=== PATIENT | female | born 1975 | race Caucasian/White ===

== ENCOUNTER 2016-10-17 17:55 | Emergency (ER) | payer OTHER ==
--- NOTE | 2016-10-17 21:51 | ED CLINICAL REPORT ---
Clinical Report - Physicians/Mid Levels [facility] [address] [place] [address] 10/17/2016 17:57 Patient: NALDO ALANIZ Time Seen: 20:50; initial patient contact, initial documentation, patient care assumed. Arrived- By private vehicle. Historian- patient. HISTORY OF PRESENT ILLNESS Chief Complaint: DYSURIA. This started about 2 - 3 weeks ago and still present. The symptoms are described as severe. Modifying factors- worsened by urination. Not relieved by anything. The patient has had pelvic pain, lower back pain and flank pain. No abdominal pain, vaginal pain, abnormal bleeding or vaginal discharge. She has had pain with urination and urgency of urination. The patient has had urinary frequency. Sexually active- unprotected sex and heterosexual. No exposure to sexually transmitted disease. Similar symptoms previously: None. Recent medical care: The patient was seen recently in a clinic. ( went to clinic approx x1 wk ago, dx with uti, took x7d cipro, no better). REVIEW OF SYSTEMS The patient has had nausea. No vomiting, fever, difficulty breathing or chest pain. She has had diarrhea (yesterday - gone today). This has occurred several times. She has had chills. All systems otherwise negative, except as recorded above. PAST HISTORY See nurses notes. ( PROBLEMS: Endometriosis. UTI - Urinary Tract Infection. Cervical CA. Otitis Media. PTSD. Anxiety Reaction. --19:26 Parvez Mancera, R.N. ADDITIONAL SURGERIES: Adenoidectomy. . Hysterectomy. Laparoscopy. Oophorectomy. Partial hysterectomy. Salpingectomy. Tonsillectomy. --19:26 Parvez Mancera, R.N.). SOCIAL HISTORY Light tobacco smoker. Occasional alcohol use. History of occasional drug use. No recent travel. Is a local resident. FAMILY HISTORY Negative. ADDITIONAL NOTES The nursing notes have been reviewed with agreement regarding the chief complaint, HPI, ROS, PMH and patient medications and allergies. PHYSICAL EXAM Vital Signs: 10/17/2016 19:18 BP: 103/64. HR: 82. RR: 16. O2 saturation: 99%. Temp: 98.2 F. Pain level now: 10/10. Have been reviewed as normal and appear to be correct. Appearance: Alert. Oriented X3. No acute distress. HEENT: Normal external inspection. ENT: Pharynx normal. Neck: Neck supple. CVS: Heart sounds normal. Respiratory: No respiratory distress. Breath sounds normal. Chest nontender. Abdomen: Soft. Mild tenderness in the suprapubic area. No guarding, rebound tenderness or Sanchez's, obturator or psoas sign present. Bowel sounds normal. No organomegaly. No mass. Tenderness present. Back: Abnormal external inspection. Mild CVA tenderness on the left. Skin: Skin warm and dry. Normal skin color. No rash. Normal skin turgor. Extremities: Extremities nontender. No lower extremity edema. Neuro: Oriented X 3. Mood/affect normal. No motor deficit. No sensory deficit. LABS, X-RAYS, AND EKG Laboratory Tests: UA-Culture if indicated: (JAIRO: 10/17/2016 19:21) ( [facility] 10/17/2016 19:54) Final results Test Result Flag Units (Reference) URINE COLOR YELLOW URINE APPEARANCE CLEAR URINE GLUCOSE NEGATIVE (NEGATIVE) URINE BILIRUBIN NEGATIVE (NEGATIVE) URINE KETONE NEGATIVE (NEGATIVE) URINE SPECIFIC GRAVITY 1.020 (1.010-1.030) URINE PH 7.5 (5.0-8.0) URINE PROTEIN NEGATIVE (NEGATIVE) URINE UROBILINOGEN 0.2 EU/dL (0.2-1.0) URINE NITRITE NEGATIVE (NEGATIVE) URINE BLOOD NEGATIVE (NEGATIVE) URINE LEUK ESTERASE TRACE (NEGATIVE) URINE RBC NONE SEEN rbc/hpf (0-1) URINE WBC 3-5 wbc/hpf (0-1) URINE EPITHELIAL CELLS 3-5 EPI/hpf (0-5) URINE BACTERIA FEW (1+) (NONE SEEN) URINE COMMENT CULTURE INDICATED 1+ AMORPHOUSURINE CULTURES ARE SET-UP BASED ON THE FOLLOWING CRITERIA:POSITIVE NITRITEPOSITIVE LEUKOCYTE ESTERASEGREATER THAN 10 WHITE BLOOD CELLSMODERATE (2+) OR GREATER BACTERIA Serum Qualitative: (JAIRO: 10/17/2016 20:40) ( [facility] 10/17[place] 21:23) Final results Test Result Flag Units (Reference) , SERUM NEGATIVE CBC w Diff: (JAIRO: 10/17/2016 20:40) ( [facility] 10/17/2016 21:21) Final results Test Result Flag Units (Reference) WHITE BLOOD COUNT 4.7 K/uL (4.5-11.5) RED BLOOD COUNT 3.84 L M/uL (4.00-5.20) HEMOGLOBIN 11.4 L gm/dL (12.0-16.0) HEMATOCRIT 34.7 L % (36.0-46.0) MEAN CELL VOLUME 90 fL (80-100) MEAN CORPUSCULAR HGB 30 pg (26-34) MEAN CORPUSCULAR HGB CONC 33 g/dL (31-37) RED CELL DISTRIBUTION WIDTH 12.1 % (11.6-14.8) PLATELET COUNT 194 K/uL (150-400) NEUTROPHIL % 53.2 % (50-75) LYMPH % 37.7 % (25-40) MONO % 6.1 % (3-14) EOSINOPHIL % 2.3 % (0-4) BASOPHIL % 0.7 % (0-2) CMP: (JAIRO: 10/17/2016 20:40) ( [facility] 10/17/2016 21:35) Final results Test Result Flag Units (Reference) GLUCOSE 70 mg/dL (70-110) BUN 10 mg/dL (7-18) CREATININE 0.8 mg/dL (0.6-1.3) Estimated GFR >60 mL/min Estimated GFR- >60 mL/min Note: Persistent reduction over 3 months in eGFR<60 mL/min/1.73 m2 defines CKD. Patients with eGFR values>=60 mL/min/1.73 m2 may also have CKD if evidence ofpersistent proteinuria. Additional information may be foundat www.kidney.org. SODIUM 139 mmol/L (136-145) POTASSIUM 3.9 mmol/L (3.5-5.1) CHLORIDE 108 H mmol/L (98-107) CARBON DIOXIDE 30 mmol/L (21-32) CALCIUM 8.1 L mg/dL (8.5-10.1) TOTAL PROTEIN 6.2 L g/dL (6.4-8.2) ALBUMIN 3.6 g/dL (3.3-5.0) BILIRUBIN, TOTAL 0.2 mg/dL (0.0-1.0) ALKALINE PHOSPHATASE 46 U/L (46-116) AST (SGOT) 17 U/L (15-37) ALT (SGPT) 34 U/L (12-78) LIPASE 178 U/L (73-393) AMYLASE 57 U/L (25-115) . PROGRESS AND PROCEDURES Patient counseled in person regarding the patient's stable condition, test results and diagnosis. 21:47. Differential Diagnosis: Other possible considerations: uti, pyelo, urosepsis. Above considerations are based on history, physical exam and laboratory data. Differential diagnosis was discussed with patient. Disposition: Discharged home in good and improved condition (21:50). Condition: good and stable. CLINICAL IMPRESSION Acute urinary tract infection with cystitis. No pyelonephritis or hematuria. Not associated with indwelling catheter or obstruction. INSTRUCTIONS Do not work for two days. Drink plenty of fluids for the next 24 hours until better. No sexual contact. Warnings: GENERAL WARNINGS: Return or contact your physician immediately if your condition worsens or changes unexpectedly, if not improving as expected, or if other problems arise. Specifically return if problem worsens. Prescription Medications: Zofran 4 mg: Take 1 orally every six hours as needed for nausea/vomiting. Dispense ten (10). No refills. Substitution is permissible. Pyridium 200 mg: take 1 orally every 8 hours as needed for urinary problems. Dispense six (6). No refills. Substitution is permissible. Septra DS 800 mg / 160 mg: take 1 tablet orally every 12 hours for 7 days. Dispense fourteen (14). No refills. Substitution is permissible. Toradol 10 mg tablets: Take 1 tablet orally every 6 hours as needed. Dispense fifteen (15). No refills. Substitution is permissible. Follow-up: Follow up with your doctor in about three days even if well. Call for an appointment. Summary of care provided to patient. Understanding of the discharge instructions verbalized by patient. (Electronically signed by Deepika Boateng A.R.N.P. 10/17/2016 22:52)
--- NOTE | 2016-10-17 21:51 | ED NURSING NOTES ---
Clinical Report - Nurses [facility] [address] [place] [address] 10/17/2016 17:57 Patient: NALDO ALANIZ TRIAGE Triage time 19:19. Acuity: LEVEL 4. Chief Complaint: PAINFUL URINATION, URGENCY and FREQUENCY. 19:29. Alert. SEPSIS SCREEN: Sepsis Screen. Negative (no infection suspected/documented). --19:29 Parvez Mancera R.N. 19:18 10/17/16. BP: 103/64. HR: 82. RR: 16. O2 saturation: 99% on room air. Temp: 98.2 F (oral). Pain level now: 07/21. --19:29 Parvez Mancera R.N. Weight: 65.7 kg stated. Height/Length: 66.5 inches Per Patient. BMI: 23. --19:27 Parvez Mancera R.N. Medications ClonazePAM Oral (Tablet 1 mg) 1 tablet, at bedtime. TraZODone HCl Oral (Tablet 150 mg) 1 tablet, at bedtime. Xanax Oral 0.5 mg, as needed. --19:25 Parvez Mancera R.N. Mirtazapine Oral 15 mg, daily. --19:25 Parvez Mancera R.N. Medication/allergy information source: the patient. --19:29 Parvez Mancera R.N. Allergies Penicillins. Possible Moderate (Mom and dad are allergic) --19:25 Parvez Mancera R.N. History Arrived by private vehicle. Historian: patient. Accompanied by family. Primary physician (Ronald). Onset. (Few weeks). 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 (Finished course Cipro,). PAST MEDICAL HX: Immunizations: up-to-date. Last normal menstrual period- years ago. The patient has had a hysterectomy. SOCIAL HX: Current every day light tobacco smoker- less than 1/2 a pack per day. Occasional alcohol use. History of occasional drug use: marijuana. No infectious disease exposure. ABUSE ASSESSMENT: No report of abuse. FALL RISK ASSESSMENT: Fall risk assessment completed. No fall risk identified. NUTRITIONAL RISK ASSESSMENT: The nutritional risk assessment revealed no deficiencies. FUNCTIONAL ASSESSMENT: Functional assessment: no impairments noted. LEARNING NEEDS ASSESSMENT: The learning needs assessment revealed no barriers. SKIN INTEGRITY ASSESSMENT: Skin integrity risk assessment completed. No skin integrity risk identified. --19: Parvez Mancera R.N. PROBLEMS: Endometriosis. UTI - Urinary Tract Infection. Cervical CA. Otitis Media. PTSD. Anxiety Reaction. --19: Parvez Mancera R.N. ADDITIONAL SURGERIES: Adenoidectomy. . Hysterectomy. Laparoscopy. Oophorectomy. Partial hysterectomy. Salpingectomy. Tonsillectomy. --19: Parvez Mancera R.N. Interventions ID band on patient. --: aPrvez Mancera R.N. PHYSICAL ASSESSMENT Ambulatory to room. GENERAL / NEURO / PSYCH: Alert. Oriented X 4. Appears in pain. HEENT: Mucous membranes are pink. RESPIRATORY: Respirations not labored. Breath sounds within normal limits. CVS: Normal heart rate and rhythm. Capillary refill less than 2 seconds. GI / : Abdomen soft and nontender. Bowel sounds within normal limits. SKIN: Skin is warm and dry. BACK: ( Left flank pain). --20:32 Humera Pierre R.N. NURSING PROGRESS NOTES 19:18. Patient ID band checked for patient name and birthdate: patient confirmed. Clean catch urine collected with return of yellow-colored cloudy urine; sample sent to lab for urinalysis. Specimen labeled in the presence of the patient. --19:29 Parvez Mancera R.N. 20:32 10/17/16. BP: 107/66. HR: 74. RR: 17. O2 saturation: 100%. Pain level now: 07/21. --20:35 Humera Pierre R.N. Monitoring of patient in place. Patient gowned. Head of bed elevated. Reassurance given. Two patient identifiers checked. Call light placed in reach. Side rails up x 1. Bed placed in lowest position. Brakes of bed on. --20:35 Humear Pierre R.N. 20:38 10/17/2016 Site #1 started via IV in the right antecubital space with an 20g angiocath, with aseptic technique and good blood return; one attempt. Blood drawn: rainbow set. Labeled in the presence of the patient and sent to the lab. Saline lock flushed with 10 mL saline. --20:43 Humera Pierre R.N. 21:30 10/17/2016 Toradol IVP 30 mg given over 2 minute(s) via site #1. Allergies verified and confirmed 5 rights. IV patency established. IV site checked: no pain, redness, or swelling. IV flushed thoroughly pre- and post-medication administration. IVP given by RN. --21:40 Humera Pierre R.N. <<STRICKEN ENTRY-- 21:31 10/17/2016 Started 1 gm of Ceftriaxone IVPB in bag #1 50 mL; at 110 mL/hr over 20 minute(s) via site #1 via IV pump. Allergies verified and confirmed 5 rights. IV patency established. IV site checked: no pain, redness, or swelling. IV flushed thoroughly pre- and post-medication administration. --21:41 Humera Pierre R.N. --END STRIKE>> Change to Details. --21:47 Humera Pierre R.N. 21:31 10/17/2016 Started 1 gm of Ceftriaxone IVPB in bag #1 50 mL; at 150 mL/hr over 20 minute(s) via site #1 via IV pump. Allergies verified and confirmed 5 rights. IV patency established. IV site checked: no pain, redness, or swelling. IV flushed thoroughly pre- and post-medication administration. --21:47 Humera Pierre R.N. 21:40 10/17/2016 Zofran (Ondansetron HCl) IVP 4 mg given over 2 minute(s) via site #1. Allergies verified and confirmed 5 rights. IV patency established. IV site checked: no pain, redness, or swelling. IV flushed thoroughly pre- and post-medication administration. IVP given by RN. --21:40 Humera Pierre R.N. 22:25 10/17/2016 Site #1 removed upon discharge. Catheter intact. Bandaid applied. --22:37 Lashonda Smiley R.N. DISPOSITION / DISCHARGE 22:30 10/17/16. Condition at departure: improved and stable. The goals identified in the patient's plan of care were met. No learning barriers present. Discharge instructions provided and reviewed with the patient. Reviewed medication(s) side effects, precautions, dosing and course information. Prescription(s) given to the patient. Reviewed referral to a primary care physician for followup. Patient verbalized understanding. Written instructions provided in Georgian. The patient was discharged home and accompanied by spouse. She left the Emergency Department ambulatory and via private vehicle. Spouse driving. FALL RISK ASSESSMENT: Fall risk assessment completed. No fall risk identified. --22:38 Lashonda Smiley R.N. 22:30 10/17/16. BP: 102/68. HR: 88. RR: 16. O2 saturation: 100%. Temp: 99.0 F. Pain level now 3/10. --22:38 Lashonda Smiley R.N. Departure time: 22:35 Oct 17 2016. --22:38 Lashonda Smiley R.N. Locked/Released at 10/17/2016 22:38 by Lashonda Smiley R.N.
--- NOTE | 2016-10-17 21:51 | ED ORDER SUMMARY ---
..... Patient: NALDO ALANIZ OrderSheet [facility] VisitID: [id number] [place] [address] 41y, F Registration Date/Time: 10/17/2016 ORDER SHEET Weight: 65.7 kg (stated) Allergies: Penicillins GENERAL ORDERS: UA-Culture if indicated Urgent (19:32 10/17/2016 JQuivey R.N. per protocol) (20:20 ABarnum R.N.) CBC w Diff Urgent (21:10 10/17/2016 HBivens A.R.N.P.) (Ack 21:12 LTapper) (21:23 ABarnum R.N.) CMP Urgent (21:10 10/17/2016 HBivens A.R.N.P.) (Ack 21:12 LTapper) (21:23 ABarnum R.N.) Amylase Urgent (21:10 10/17/2016 HBivens A.R.N.P.) (Ack 21:12 LTapper) (21:23 ABarnum R.N.) Lipase Urgent (21:10 10/17/2016 HBivens A.R.N.P.) (Ack 21:12 LTapper) (21:23 ABarnum R.N.) Serum Qualitative Urgent (21:11 10/17/2016 HBivens A.R.N.P.) (Ack 21:12 LTapper) (21:23 ABarnum R.N.) MEDICATION ORDERS: IV FLUIDS: Ceftriaxone IV 1 gm/50mL (NOW) (21:10 10/17/2016 HBivens A.R.N.P.) (Ack 21:23 ABarnum R.N.) (21:41 ABarnum R.N.) Toradol IV 30 mg (NOW) (21:11 10/17/2016 HBivens A.R.N.P.) (Ack 21:23 ABarnum R.N.) (21:40 ABarnum R.N.) Zofran IV 4 mg (NOW) (21:39 10/17/2016 ABarnum R.N. verbal order read back to Christ Nieto) (Ack 21:40 ABarnum R.N.) (21:40 ABarnum R.NNicholas) ORDER SHEET NOTES: [Electronically signed by Lashonda Smiley R.N. (22:38 10/17/2016)] [Electronically signed by Deepika BoatengNNicholasPNicholas (22:52 10/17/2016)] [Electronically locked/signed by Lashonda Smiley R.N. (22:38 10/17/2016)]
--- NOTE | 2016-10-17 21:51 | ED ORDER SUMMARY ---
..... Patient: NALDO ALANIZ OrderSheet [facility] VisitID: [id number] [place] [address] 41y, F Registration Date/Time: 10/17/2016 ORDER SHEET Weight: 65.7 kg (stated) Allergies: Penicillins GENERAL ORDERS: UA-Culture if indicated Urgent (19:32 10/17/2016 JQuivey R.N. per protocol) (20:20 ABarnum R.N.) CBC w Diff Urgent (21:10 10/17/2016 HBivens A.R.N.P.) (Ack 21:12 LTapper) (21:23 ABarnum R.N.) CMP Urgent (21:10 10/17/2016 HBivens A.R.N.P.) (Ack 21:12 LTapper) (21:23 ABarnum R.N.) Amylase Urgent (21:10 10/17/2016 HBivens A.R.N.P.) (Ack 21:12 LTapper) (21:23 ABarnum R.N.) Lipase Urgent (21:10 10/17/2016 HBivens A.R.N.P.) (Ack 21:12 LTapper) (21:23 ABarnum R.N.) Serum Qualitative Urgent (21:11 10/17/2016 HBivens A.R.N.P.) (Ack 21:12 LTapper) (21:23 ABarnum R.N.) MEDICATION ORDERS: IV FLUIDS: Ceftriaxone IV 1 gm/50mL (NOW) (21:10 10/17/2016 HBivens A.R.N.P.) (Ack 21:23 ABarnum R.N.) (21:41 ABarnum R.N.) Toradol IV 30 mg (NOW) (21:11 10/17/2016 HBivens A.R.N.P.) (Ack 21:23 ABarnum R.N.) (21:40 ABarnum R.N.) Zofran IV 4 mg (NOW) (21:39 10/17/2016 ABarnum R.N. verbal order read back to Christ Nieto) (Ack 21:40 ABarnum R.N.) (21:40 ABarnum R.NNicholas) ORDER SHEET NOTES: [Electronically signed by Lashonda Smiley R.N. (22:38 10/17/2016)] [Electronically signed by Deepika BoatengNNicholasPNicholas (22:52 10/17/2016)] [Electronically locked/signed by Lashonda Smiley R.N. (22:38 10/17/2016)]
--- NOTE | 2016-10-17 22:52 | ED DISCHARGE INSTRUCTIONS ---
Patient: NALDO ALANIZ General Instructions [facility] VisitID: [id number] [place] [address] 41y, F Registration Date/Time: 10/17/2016 Acute urinary tract infection with cystitis. No pyelonephritis or hematuria. Not associated with indwelling catheter or obstruction. INSTRUCTIONS Do not work for two days. Drink plenty of fluids for the next 24 hours until better. No sexual contact. Warnings: GENERAL WARNINGS: Return or contact your physician immediately if your condition worsens or changes unexpectedly, if not improving as expected, or if other problems arise. Specifically return if problem worsens. Prescription Medications: Zofran 4 mg: Take 1 orally every six hours as needed for nausea/vomiting. Dispense ten (10). No refills. Substitution is permissible. Pyridium 200 mg: take 1 orally every 8 hours as needed for urinary problems. Dispense six (6). No refills. Substitution is permissible. Septra DS 800 mg / 160 mg: take 1 tablet orally every 12 hours for 7 days. Dispense fourteen (14). No refills. Substitution is permissible. Toradol 10 mg tablets: Take 1 tablet orally every 6 hours as needed. Dispense fifteen (15). No refills. Substitution is permissible. Follow-up: Follow up with your doctor in about three days even if well. Call for an appointment. Summary of care provided to patient. Understanding of the discharge instructions verbalized by patient. ADDITIONAL INFORMATION Bladder Infection,Female (Adult) A bladder infection ("cystitis" or "UTI") usually causes a constant urge to urinate and a burning when passing urine. Urine may be cloudy, smelly or dark. There may be pain in the lower abdomen. A bladder infection occurs when bacteria from the vaginal area enter the bladder opening (urethra). This can occur from sexual intercourse, wearing tight clothing, dehydration and other factors. Home Care: Drink lots of fluids (at least 6-8 glasses a day, unless you must restrict fluids for other medical reasons). This will force the medicine into your urinary system and flush the bacteria out of your body. Avoid sexual intercourse until your symptoms are gone. Avoid caffeine, alcohol and spicy foods. These can irritate the bladder. A bladder infection is treated with antibiotics. You may also be given Pyridium (generic = phenazopyridine) to reduce the burning sensation. This medicine will cause your urine to become a bright orange color. The orange urine may stain clothing. You may wear a pad or panty-liner to protect clothing. Preventing Future Infections: Always wipe from front to back after a bowel movement. Keep the genital area clean and dry. Drink plenty of fluids each day to avoid dehydration. Both sexual partners should wash before intercourse. Urinate right after intercourse to flush out the bladder. Wear cotton underwear and cotton-lined panty hose; avoid tight-fitting pants. If you are on control pills and are having frequent bladder infections, discuss with your doctor. Follow Up: Return to this facility or see your doctor if ALL symptoms are not gone after three days of treatment. Get Prompt Medical Attention if any of the following occur: Fever of 100.4F (38C) or higher, or as directed by your healthcare provider No improvement by the third day of treatment Increasing back or abdominal pain Repeated vomiting; unable to keep medicine down Weakness, dizziness or fainting Vaginal discharge Pain, redness or swelling in the labia (outer vaginal area) Ondansetron Oral disintegrating tablet What is this medicine? ONDANSETRON (on LINA se yahaira) is used to treat nausea and vomiting caused by chemotherapy. It is also used to prevent or treat nausea and vomiting after surgery. How should I use this medicine? These tablets are made to dissolve in the mouth. Do not try to push the tablet through the foil backing. With dry hands, peel away the foil backing and gently remove the tablet. Place the tablet in the mouth and allow it to dissolve, then swallow. While you may take these tablets with water, it is not necessary to do so. Talk to your technology integration specialist regarding the use of this medicine in children. Special care may be needed. What side effects may I notice from receiving this medicine? Side effects that you should report to your doctor or health landcare facilitator as soon as possible: allergic reactions like skin rash, itching or hives, swelling of the face, lips, or tongue breathing problems dizziness fast or irregular heartbeat feeling faint or lightheaded, falls fever and chills swelling of the hands and feet tightness in the chest Side effects that usually do not require medical attention (report to your doctor or health landcare facilitator if they continue or are bothersome): constipation or diarrhea headache What may interact with this medicine? Do not take this medicine with any of the following medications: -apomorphine -cisapride -dofetilide -dronedarone -pimozide -thioridazine -ziprasidone This medicine may also interact with the following medications: -carbamazepine -phenytoin -rifampicin -tramadol -other medicines that prolong the QT interval (cause an abnormal heart rhythm) What if I miss a dose? If you miss a dose, take it as soon as you can. If it is almost time for your next dose, take only that dose. Do not take double or extra doses. Where should I keep my medicine? Keep out of the reach of children. Store between 2 and 30 degrees C (36 and 86 degrees F). Throw away any unused medicine after the expiration date. What should I tell my health care provider before I take this medicine? They need to know if you have any of these conditions: heart disease history of irregular heartbeat liver disease low levels of magnesium or potassium in the blood an unusual or allergic reaction to ondansetron, granisetron, other medicines, foods, dyes, or preservatives or trying to get breast-feeding What should I watch for while using this medicine? Check with your doctor or health landcare facilitator as soon as you can if you have any sign of an allergic reaction. Phenazopyridine Hydrochloride Oral tablet What is this medicine? PHENAZOPYRIDINE (fen az oh PEER i patricio) is a pain reliever. It is used to stop the pain, burning, or discomfort caused by infection or irritation of the urinary tract. This medicine is not an antibiotic. It will not cure a urinary tract infection. How should I use this medicine? Take this medicine by mouth with a glass of water. Follow the directions on the prescription label. Take after meals. Take your doses at regular intervals. Do not take your medicine more often than directed. Do not skip doses or stop your medicine early even if you feel better. Do not stop taking except on your doctor's advice. Talk to your technology integration specialist regarding the use of this medicine in children. Special care may be needed. What side effects may I notice from receiving this medicine? Side effects that you should report to your doctor or health landcare facilitator as soon as possible: allergic reactions like skin rash, itching or hives, swelling of the face, lips, or tongue blue or purple color of the skin difficulty breathing fever less urine unusual bleeding, bruising unusual tired, weak vomiting yellowing of the eyes or skin Side effects that usually do not require medical attention (report to your doctor or health landcare facilitator if they continue or are bothersome): dark urine headache stomach upset What may interact with this medicine? Interactions are not expected. What if I miss a dose? If you miss a dose, take it as soon as you can. If it is almost time for your next dose, take only that dose. Do not take double or extra doses. Where should I keep my medicine? Keep out of the reach of children. Store at room temperature between 15 and 30 degrees C (59 and 86 degrees F). Protect from light and moisture. Throw away any unused medicine after the expiration date. What should I tell my health care provider before I take this medicine? They need to know if you have any of these conditions: kpcvubz-[id number]-kfvhpjiid dehydrogenase (G6PD) deficiency kidney disease an unusual or allergic reaction to phenazopyridine, other medicines, foods, dyes, or preservatives or trying to get breast-feeding What should I watch for while using this medicine? Tell your doctor or health landcare facilitator if your symptoms do not improve or if they get worse. This medicine colors body fluids red. This effect is harmless and will go away after you are done taking the medicine. It will change urine to an dark orange or red color. The red color may stain clothing. Soft contact lenses may become permanently stained. It is best not to wear soft contact lenses while taking this medicine. If you are diabetic you may get a false positive result for sugar in your urine. Talk to your health care provider. Sulfamethoxazole, Trimethoprim Oral tablet What is this medicine? SULFAMETHOXAZOLE; TRIMETHOPRIM or SMX-TMP (suhl fuh meth OK angelina zohl; trye METH oh prim) is a combination of a sulfonamide antibiotic and a second antibiotic, trimethoprim. It is used to treat or prevent certain kinds of bacterial infections. It will not work for colds, flu, or other viral infections. How should I use this medicine? Take this medicine by mouth with a full glass of water. Follow the directions on the prescription label. Take your medicine at regular intervals. Do not take it more often than directed. Do not skip doses or stop your medicine early. Talk to your technology integration specialist regarding the use of this medicine in children. Special care may be needed. This medicine has been used in children as young as 2 months of age. What side effects may I notice from receiving this medicine? Side effects that you should report to your doctor or health landcare facilitator as soon as possible: allergic reactions like skin rash or hives, swelling of the face, lips, or tongue breathing problems fever or chills, sore throat irregular heartbeat, chest pain joint or muscle pain pain or difficulty passing urine red pinpoint spots on skin redness, blistering, peeling or loosening of the skin, including inside the mouth unusual bleeding or bruising unusually weak or tired yellowing of the eyes or skin Side effects that usually do not require medical attention (report to your doctor or health landcare facilitator if they continue or are bothersome): diarrhea dizziness headache loss of appetite nausea, vomiting nervousness What may interact with this medicine? Do not take this medicine with any of the following medications: aminobenzoate potassium dofetilide metronidazole This medicine may also interact with the following medications: GODWIN inhibitors like benazepril, enalapril, lisinopril, and ramipril cyclosporine digoxin diuretics indomethacin medicines for diabetes methenamine methotrexate phenytoin potassium supplements pyrimethamine sulfinpyrazone tricyclic antidepressants warfarin What if I miss a dose? If you miss a dose, take it as soon as you can. If it is almost time for your next dose, take only that dose. Do not take double or extra doses. Where should I keep my medicine? Keep out of the reach of children. Store at room temperature between 20 to 25 degrees C (68 to 77 degrees F). Protect from light. Throw away any unused medicine after the expiration date. What should I tell my health care provider before I take this medicine? They need to know if you have any of these conditions: anemia asthma being treated with anticonvulsants if you frequently drink alcohol containing drinks kidney disease liver disease low level of folic acid or [id number] dehydrogenase poor nutrition or malabsorption porphyria severe allergies thyroid disorder an unusual or allergic reaction to sulfamethoxazole, trimethoprim, sulfa drugs, other medicines, foods, dyes, or preservatives or trying to get breast-feeding What should I watch for while using this medicine? Tell your doctor or health landcare facilitator if your symptoms do not improve. Drink several glasses of water a day to reduce the risk of kidney problems. Do not treat diarrhea with over the counter products. Contact your doctor if you have diarrhea that lasts more than 2 days or if it is severe and watery. This medicine can make you more sensitive to the sun. Keep out of the sun. If you cannot avoid being in the sun, wear protective clothing and use a sunscreen. Do not use sun lamps or tanning beds/booths. Ketorolac Tromethamine Oral tablet What is this medicine? KETOROLAC (donte toe ROLE ak) is a non-steroidal anti-inflammatory drug (NSAID). It is used for a short while to treat moderate to severe pain, including pain after surgery. It should not be used for more than 5 days. How should I use this medicine? Take this medicine by mouth with a full glass of water. Follow the directions on the prescription label. Take your medicine at regular intervals. Do not take your medicine more often than directed. Do not take more than the recommended dose. A special MedGuide will be given to you by the pharmacist with each prescription and refill. Be sure to read this information carefully each time. Talk to your technology integration specialist regarding the use of this medicine in children. While this drug may be prescribed for children as young as 16 years of age for selected conditions, precautions do apply. Patients over 65 years old may have a stronger reaction and need a smaller dose. What side effects may I notice from receiving this medicine? Side effects that you should report to your doctor or health landcare facilitator as soon as possible: allergic reactions like skin rash, itching or hives, swelling of the face, lips, or tongue black or tarry stools breathing problems changes in vision chest pain high blood pressure nausea or vomiting redness, blistering, peeling or loosening of the skin, including inside the mouth severe abdominal pain slurred speech or weakness on one side of the body unexplained weight gain or swelling unusual bleeding or bruising unusually weak or tired yellowing of eyes or skin Side effects that usually do not require medical attention (report to your doctor or health landcare facilitator if they continue or are bothersome): diarrhea dizziness headache heartburn What may interact with this medicine? Do not take this medicine with any of the following medications: aspirin and aspirin-like medicines cidofovir methotrexate NSAIDs, medicines for pain and inflammation, like ibuprofen or naproxen pemetrexed probenecid This medicine may also interact with the following medications: alcohol alendronate alprazolam carbamazepine cyclosporine diuretics flavocoxid fluoxetine ginkgo lithium medicines for high blood pressure like enalapril medicines that affect platelets like pentoxifylline medicines that treat or prevent blood clots like heparin, warfarin muscle relaxants phenytoin steroid medicines like prednisone or cortisone thiothixene What if I miss a dose? If you miss a dose, take it as soon as you can. If it is almost time for your next dose, take only that dose. Do not take double or extra doses. Where should I keep my medicine? Keep out of the reach of children. Store at room temperature between 20 and 25 degrees C (68 and 77 degrees F). Throw away any unused medicine after the expiration date. What should I tell my health care provider before I take this medicine? They need to know if you have any of these conditions: asthma bleeding problems like hemophilia cigarette smoker drink more than 3 alcohol containing drinks a day heart disease or circulation problems such as heart failure or leg edema (fluid retention) high blood pressure kidney disease liver disease stomach bleeding or ulcers an unusual or allergic reaction to ketorolac, aspirin, other NSAIDs, other medicines, foods, dyes, or preservatives or trying to get breast-feeding What should I watch for while using this medicine? Tell your doctor or health landcare facilitator if your pain does not get better. Talk to your doctor before taking another medicine for pain. Do not treat yourself. This medicine does not prevent heart attack or stroke. In fact, this medicine may increase the chance of a heart attack or stroke. The chance may increase with longer use of this medicine and in people who have heart disease. If you take aspirin to prevent heart attack or stroke, talk with your doctor or health landcare facilitator. Do not take medicines such as ibuprofen and naproxen with this medicine. Side effects such as stomach upset, nausea, or ulcers may be more likely to occur. Many medicines available without a prescription should not be taken with this medicine. This medicine can cause ulcers and bleeding in the stomach and intestines at any time during treatment. Do not smoke cigarettes or drink alcohol. These increase irritation to your stomach and can make it more susceptible to damage from this medicine. Ulcers and bleeding can happen without warning symptoms and can cause . You may get drowsy or dizzy. Do not drive, use machinery, or do anything that needs mental alertness until you know how this medicine affects you. Do not stand or sit up quickly, especially if you are an older patient. This reduces the risk of dizzy or fainting spells. This medicine can cause you to bleed more easily. Try to avoid damage to your teeth and gums when you brush or floss your teeth. You have been given the following additional information: Bladder Infection, Female (Adult) Ondansetron Oral disintegrating tablet Phenazopyridine Hydrochloride Oral tablet Sulfamethoxazole, Trimethoprim Oral tablet Ketorolac Tromethamine Oral tablet Do not work for two days. (Electronically signed by Deepika Boateng A.R.N.P. 10/17/2016 22:52)
--- NOTE | 2016-10-17 22:53 | ED MED RECONCILIATION SUMMARY ---
Patient: NALDO ALANIZ Medication Reconciliation Report [facility] VisitID: [id number] [place] [address] 41y, F Registration Date/Time: 10/17/2016 Weight: 65.7 kg Height/Length: (not available) BMI: 23.0 ALLERGIES: Penicillins The patient's Home Medications are listed below: THE FOLLOWING MEDICATIONS NEED TO BE RECONCILED: ClonazePAM Oral (1 mg) 1 tablet, at bedtime Mirtazapine Oral 15 mg, daily TraZODone HCl Oral (150 mg) 1 tablet, at bedtime Xanax Oral 0.5 mg The source(s) of the original Home Medication information: patient The following Medications were given to the patient in the Emergency Department: Zofran [IVP] IVP 4 mg, administered: 10/17/2016 9:40:00 PM Toradol [IVP] IVP 30 mg, administered: 10/17/2016 9:30:00 PM Ceftriaxone [IVPB] IVPB bolus 0, then 1 gm 150 mL/hr, administered: 10/17/2016 9:31:00 PM The following Medications were prescribed to the patient: Zofran 4 mg: Take 1 orally every six hours as needed for nausea/vomiting. Dispense ten (10). No refills. Substitution is permissible. -- Deepika Boateng A.R.N.P. Pyridium 200 mg: take 1 orally every 8 hours as needed for urinary problems. Dispense six (6). No refills. Substitution is permissible. -- Deepika Boateng A.R.N.P. Septra DS 800 mg / 160 mg: take 1 tablet orally every 12 hours for 7 days. Dispense fourteen (14). No refills. Substitution is permissible. -- Deepika Boateng A.R.N.P. Toradol 10 mg tablets: Take 1 tablet orally every 6 hours as needed. Dispense fifteen (15). No refills. Substitution is permissible. -- Deepika Boateng A.R.N.P.
--- NOTE | 2016-10-17 22:53 | ED MAR SUMMARY ---
..... Medication Administration Record [facility] [address] [place] [address] Patient: NALDO ALANIZ Visit ID: [id number] 41y, F Weight: 65.7 kg Height/Length: 66.5 in BMI: 23 ALLERGIES: Penicillins Given 21:30 10/17/2016 Humera Pierre R.N. Medication Administered: TORADOL [IVP], Dose: 30 mg IVP over 2 minute(s), Site: #1 right AC. Medication Ordered: Toradol IV 30 mg (NOW). Start 21:31 10/17/2016 Humera Pierre R.N. Medication Administered: CEFTRIAXONE [IVPB], Dose: 1 gm IVPB over 20 minute(s), Rate: 150 mL/hr, Dispensed: 50 mL bag, Site: #1 right AC. Medication Ordered: Ceftriaxone IV 1 gm/50mL (NOW). Given 21:40 10/17/2016 Humera Pierre R.N. Medication Administered: ZOFRAN [IVP] (ONDANSETRON HCL), Dose: 4 mg IVP over 2 minute(s), Site: #1 right AC. Medication Ordered: Zofran IV 4 mg (NOW).
--- NOTE | 2016-10-17 22:53 | ED MAR SUMMARY ---
..... Medication Administration Record [facility] [address] [place] [address] Patient: NALDO ALANIZ Visit ID: [id number] 41y, F Weight: 65.7 kg Height/Length: 66.5 in BMI: 23 ALLERGIES: Penicillins Given 21:30 10/17/2016 Humera Pierre R.N. Medication Administered: TORADOL [IVP], Dose: 30 mg IVP over 2 minute(s), Site: #1 right AC. Medication Ordered: Toradol IV 30 mg (NOW). Start 21:31 10/17/2016 Humera Pierre R.N. Medication Administered: CEFTRIAXONE [IVPB], Dose: 1 gm IVPB over 20 minute(s), Rate: 150 mL/hr, Dispensed: 50 mL bag, Site: #1 right AC. Medication Ordered: Ceftriaxone IV 1 gm/50mL (NOW). Given 21:40 10/17/2016 Humera Pierre R.N. Medication Administered: ZOFRAN [IVP] (ONDANSETRON HCL), Dose: 4 mg IVP over 2 minute(s), Site: #1 right AC. Medication Ordered: Zofran IV 4 mg (NOW).
--- NOTE | 2016-10-17 22:53 | ED MED RECONCILIATION SUMMARY ---
Patient: NALDO ALANIZ Medication Reconciliation Report [facility] VisitID: [id number] [place] [address] 41y, F Registration Date/Time: 10/17/2016 Weight: 65.7 kg Height/Length: (not available) BMI: 23.0 ALLERGIES: Penicillins The patient's Home Medications are listed below: THE FOLLOWING MEDICATIONS NEED TO BE RECONCILED: ClonazePAM Oral (1 mg) 1 tablet, at bedtime Mirtazapine Oral 15 mg, daily TraZODone HCl Oral (150 mg) 1 tablet, at bedtime Xanax Oral 0.5 mg The source(s) of the original Home Medication information: patient The following Medications were given to the patient in the Emergency Department: Zofran [IVP] IVP 4 mg, administered: 10/17/2016 9:40:00 PM Toradol [IVP] IVP 30 mg, administered: 10/17/2016 9:30:00 PM Ceftriaxone [IVPB] IVPB bolus 0, then 1 gm 150 mL/hr, administered: 10/17/2016 9:31:00 PM The following Medications were prescribed to the patient: Zofran 4 mg: Take 1 orally every six hours as needed for nausea/vomiting. Dispense ten (10). No refills. Substitution is permissible. -- Deepika Boateng A.R.N.P. Pyridium 200 mg: take 1 orally every 8 hours as needed for urinary problems. Dispense six (6). No refills. Substitution is permissible. -- Deepika Boateng A.R.N.P. Septra DS 800 mg / 160 mg: take 1 tablet orally every 12 hours for 7 days. Dispense fourteen (14). No refills. Substitution is permissible. -- Deepika Boateng A.R.N.P. Toradol 10 mg tablets: Take 1 tablet orally every 6 hours as needed. Dispense fifteen (15). No refills. Substitution is permissible. -- Deepika Boateng A.R.N.P.
== END 2016-10-17 22:35 | disposition home or self-care (01) ==
LOC: ED SRH 17:55
DX: N30.00 Acute cystitis without hematuria (principal); Z79.899 Other long term (current) drug therapy; F17.210 Nicotine dependence, cigarettes, uncomplicated; Z88.0 Allergy status to penicillin
CPT/HCPCS: 90004; 90100; 90469; 92235; 92530; 95059; 98428